=== PATIENT | male | born 1995 ===

== ENCOUNTER 2017-06-22 23:12 | Emergency (ER) | payer SELFPAY ==
[2017-06-22 23:36] VITALS: RESP 20; O2SAT 99
--- NOTE | 2017-06-23 01:05 | C.PDOC ---
History Of Present Illness 22 year old male with a Hx of hemorrhoids presents to the ER with a complaint of rectal pain that worsens with defecation. Patient's last bowel movement was this morning, denies abdominal pain or rectal bleeding. Time Seen by Provider: 06/23/17 00:13 Chief Complaint (Nursing): GI Problem History Per: Patient History/Exam Limitations: no limitations Onset/Duration Of Symptoms: Hrs Current Symptoms Are (Timing): Still Present Recent travel outside of the [place]: No Past Medical History Reviewed: Historical Data, Nursing Documentation, Vital Signs Vital Signs: Last Vital Signs Temp 97 F L 06/23/17 01:07 Pulse 82 06/23/17 01:07 Resp 20 06/23/17 01:07 BP 114/69 06/23/17 01:07 Pulse Ox 99 06/23/17 21:08 Family History: States: Unknown Family Hx - Social History Hx Alcohol Use: No Hx Substance Use: No Review Of Systems Constitutional: Negative for: Fever, Chills Gastrointestinal: Positive for: Rectal Pain. Negative for: Abdominal Pain, Other (Rectal bleeding) Physical Exam - Physical Exam Appears: Non-toxic, No Acute Distress Skin: Normal Color, Warm, Dry Head: Atraumatic, Normacephalic Eye(s): bilateral: Normal Inspection Gastrointestinal/Abdominal: Soft, No Tenderness Rectal: Hemorrhoids (At 6' o clock position. No fluctuance, bleeding, or bloody stools.) Neurological/Psych: Oriented x3, Normal Speech Gait: Steady ED Course And Treatment O2 Sat by Pulse Oximetry: 99 (Room air) Pulse Ox Interpretation: Normal Progress Note: Patient with past h/o hemorrhoid, on exam findings most likely consistent with hemorrhoids but cannot rule out early perianal abscess. Patient advised to do sitz baths, given Rx for meds, and instructed to follow up with PMD or return to the ER for any worsening of pain or symptoms. Disposition Counseled Patient/Family Regarding: Diagnosis, Need For Followup, Rx Given - Disposition Disposition: HOME/ ROUTINE Disposition Time: :02 Condition: STABLE Additional Instructions: Please follow up with PMD Take meds as instructed High fiber diet Do Sitz baths Return to ER if increasing rectal pain, discharge, swelling to rectal area or worse Prescriptions: Docusate Sodium [Colace] 100 mg PO BID #20 capsule Hydrocortisone [Anusol-HC] 25 mg RC BID #20 sup Instructions: Hemorrhoids (ED), Sitz Bath (GEN) Forms: [employer] (Bots[place]an) Print Language: ARABIC - Clinical Impression Clinical Impression: Hemorrhoids - 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 - Scribe Statement The provider has reviewed the documentation as recorded by the Scribbharath Trent All medical record entries made by the Raffaeleibbharath were at my direction and personally dictated by me. I have reviewed the chart and agree that the record accurately reflects my personal performance of the history, physical exam, medical decision making, and the department course for this patient. I have also personally directed, reviewed, and agree with the discharge instructions and disposition.
[2017-06-23 01:08] VITALS: BP 114/69; PULSE 82; TEMP 97
== END 2017-06-23 01:10 | disposition home or self-care (01) ==
LOC: C.ER 23:12
DX: K64.9 Unspecified hemorrhoids (principal)